=== PATIENT | male | born 1950 | race Caucasian/White ===

== ENCOUNTER 2019-03-03 18:49 | Inpatient (IN) | payer OTHER ==
[~2019-03-03] VITALS: Ht 188 cm; Wt 95.4 kg
[2019-03-03] MEDS ORDERED: ASPirin 81 mg TAB PO ONE (19:30)
[2019-03-03 19:52] LABS: Hematocrit 47.1 % (41.0-53.0); Mean Corpuscular Hemoglobin 32.4 pg (28.0-32.0); Mean Corpuscular Volume 95.3 fL (80.0-100.0); Platelet Count (auto) 191 10^3/uL (140-450); Red Blood Cells 4.94 10^6/uL (4.5-5.90); White Blood Cell 12.3 10^3/uL (4.4-10.8)
[2019-03-03 19:57] LABS: Basophils % (manual) 0 (0.0-2.0); Blast Cells 0; Eosinophils % (manual) 0 (0-7); Metamyelocytes % 0; Myelocytes % 0; Promyelocytes % 0; Reactive Lymphocytes 0
[2019-03-03 20:01] LABS: Calcium 8.3 mg/dL (8.5-10.1); Chloride 107 mmol/L (98-107); Potassium 4.6 mmol/L (3.5-5.1); Sodium 138 mmol/L (136-145)
[2019-03-03 20:10] LABS: Alanine Aminotransferase 24 U/L (16-61); Albumin 3.8 g/dL (3.4-5.0); Alkaline Phosphatase 73 U/L (45-117); Anion Gap 6 (5-15); Aspartate Aminotransferase 19 U/L (15-37); Bilirubin, Total 0.7 mg/dL (0.2-1.0); Blood Urea Nitrogen 19 mg/dL (7-18); Carbon Dioxide 25 mmol/L (21-32); GFR African American 67 mL/min; GFR Non-African American 55 mL/min; Glucose 211 mg/dL (74-106); Total Protein 7.3 g/dL (6.4-8.2)
[2019-03-03 20:54] LABS: Band Neutrophils % (manual) 5; Lymphocytes % (manual) 3 (10.0-50.0); Monocytes % (manual) 2 (0-12)
[2019-03-03] MEDS ORDERED: METF-370 PO (22:30)
[2019-03-03] MEDS ORDERED: OMEP20TA PO (22:30)
[2019-03-03] MEDS ORDERED: LISI2.5T47 PO (22:30)
[2019-03-03] MEDS ORDERED: SIMV-13 PO (22:30)
[2019-03-03] MEDS ORDERED: FLUT500M2 IN (22:30)
[2019-03-03] MEDS ORDERED: LEVO137T3 PO (22:30)
[2019-03-03] MEDS ORDERED: diphenhdrAMINE HCL 25 MG CAP PO ONE (23:00)
[2019-03-03] MEDS ORDERED: MORPHINE SULFATE 4 MG/ML SYR/VIAL IV PRN (23:15)
[2019-03-03] MEDS ORDERED: HYDROcodone-ACET 5/325MG TAB PO PRN (23:15)
[2019-03-03] MEDS ORDERED: DOCUSATE SOD 100 MG CAP PO PRN (23:15)
[2019-03-03] MEDS ORDERED: LORazepam 0.5 MG TAB PO PRN (23:15)
[2019-03-03] MEDS ORDERED: ACETAMINOPHEN 325 MG TAB PO PRN (23:15)
[2019-03-03] MEDS ORDERED: DEXTROSE (50%) 50ML SYRG IV PRN (23:15)
[2019-03-03] MEDS ORDERED: MORPHINE SULF INJ 2 MG/ML SYRINGE 1ML IV PRN (23:15)
[2019-03-03] MEDS ORDERED: NITROGLYCERIN 0.4 MG SL TAB SL PRN (23:15)
[2019-03-03] MEDS ORDERED: ONDANSETRON HCL 4 MG/2 ML VIAL IV PRN (23:15)
[2019-03-03] MEDS: ACCU-CHEK COMFORT CURVE STRIP VI SCH (23:49)
[2019-03-03] MEDS: InsuLIN REG 1unit/0.01ml Soln (100units/ml) SC SCH (23:54)
[2019-03-04] MEDS: ACCU-CHEK COMFORT CURVE STRIP VI SCH ×5 (04:07→22:37)
[2019-03-04] MEDS: InsuLIN REG 1unit/0.01ml Soln (100units/ml) SC SCH ×5 (04:07→20:00)
[2019-03-04 06:21] LABS: Basophils # (auto) 0 uL; Basophils % (auto) 0.2 % (0.0-2.0); Eosinophils # (auto) 0 uL; Eosinophils % (auto) 0.2 % (0.0-7.0); Hematocrit 42.1 % (41.0-53.0); Hemoglobin 14.6 g/dL (13.5-17.5); Lymphocytes # (auto) 0.7 uL; Lymphocytes % (auto) 9.4 % (10.0-50.0); Mean Corpuscular Hemoglobin 32.7 pg (28.0-32.0); Mean Corpuscular Hgb Conc. 34.6 g/dL (32.0-36.0); Mean Corpuscular Volume 94.5 fL (80.0-100.0); Monocytes # (auto) 0.4 uL; Monocytes % (auto) 5.8 % (0.0-12.0); Neutrophils # (auto) 6.3 uL; Neutrophils % (auto) 84.4 % (37.0-80.0); Nucleated Red Blood Cells % 0.1 %; Platelet Count (auto) 156 10^3/uL (140-450); Red Blood Cells 4.46 10^6/uL (4.5-5.90); Red Cell Distribution Width 13.1 % (11.8-14.3); White Blood Cell 7.5 10^3/uL (4.4-10.8)
[2019-03-04 06:29] LABS: Anion Gap 8 (5-15); Blood Urea Nitrogen 19 mg/dL (7-18); Carbon Dioxide 21 mmol/L (21-32); Chloride 107 mmol/L (98-107); GFR African American 78 mL/min; GFR Non-African American 64 mL/min; Glucose 137 mg/dL (74-106); Potassium 3.8 mmol/L (3.5-5.1); Sodium 136 mmol/L (136-145)
--- NOTE | 2019-03-04 08:00 | NUR ---
Opening Shift Note Received report of the patient. Awake lying in bed. Patient shows no signs of distress at this time. Discussed plan of care with the patient. Bed in lowest position, side rails up x2, and the call light is within reach. Will continue to monitor.
[2019-03-04 09:00] VITALS: BP 141/78
[2019-03-04] MEDS ORDERED: INFLUENZA QUAD 2019-2020 0.5ml SYRG IM ONE (10:00)
--- NOTE | 2019-03-04 12:12 | NUR ---
03/04/19 1150 Contacted network intelligence analyst Delia at [facility] and requested that authorization be provided for patient's continued stay. Per Delia the assigned director case Blue has to review today's clinical information before further authorization can be given. I faxed today's labs, vitals and medication list to [facility] verified receipt. I requested that she have [employer] Blue call me regarding authorization request.
[2019-03-04 13:00] VITALS: BP_SYST 104; BP_SYST 120; BP_DIAS 62; BP_DIAS 65
--- NOTE | 2019-03-04 13:18 | NUR ---
Flu Shot Patient wants flu shot upon discharge.
[2019-03-04 15:02] LABS: INR 1.19 (0.9-1.15); Partial Thromboplastin Time 28.2 sec (23.64-32.05)
--- NOTE | 2019-03-04 16:33 | NUR ---
03/04/19 1630 I called [facility] Captain Assistant Blue [phone] to ask for an update on the status of the transfer-was on hold for more than 10 minutes, unable to leave a message.
[2019-03-04 17:00] VITALS: BP 122/69
--- NOTE | 2019-03-04 19:20 | NUR ---
Opening Shift Note Assumed care of patient. Patient is awake and alert. No S/S of distress/SOB or pain. Instructed on POC and to call for assist PRN, will continue to monitor for changes. Bed locked in lowest position and bed rails up x2. Call light within reach.
--- NOTE | 2019-03-04 19:55 | NUR ---
Leatha Mcarthur requested his [place] physician to speak to our physician. Paged the hospitalist. Awaiting response.
--- NOTE | 2019-03-04 20:48 | NUR ---
Transfer crew caller hospitalist called back and stated that he felt more comfortable with Dr. Ruby speaking to the [place] physician because he has not seen the patient.
[2019-03-04 22:00] VITALS: BP 119/71
[2019-03-04] MEDS ORDERED: ATORVASTATIN 20 MG TAB PO SCH (22:00)
[2019-03-04] MEDS: METOPROLOL TARTRATE 25 MG TAB PO SCH (22:36)
[2019-03-05] MEDS: ACCU-CHEK COMFORT CURVE STRIP VI SCH ×4 (00:41→12:13)
[2019-03-05] MEDS: InsuLIN REG 1unit/0.01ml Soln (100units/ml) SC SCH ×4 (04:00→12:13)
[2019-03-05 05:00] VITALS: BP 121/64
[2019-03-05] MEDS ORDERED: LEVOTHYROXINE SODIUM 25 MCG TAB PO SCH (07:00)
[2019-03-05 07:15] LABS: Cholesterol 92 mg/dL (< 200)
[2019-03-05 07:17] LABS: HDL Cholesterol 31 mg/dL (40-59); LDL Cholesterol 47 mg/dL (< 100); Triglycerides 84 mg/dL (< 150)
[2019-03-05 09:12] VITALS: BP 128/74
[2019-03-05] MEDS: METOPROLOL TARTRATE 25 MG TAB PO SCH (09:31)
--- NOTE | 2019-03-05 09:34 | NUR ---
PT REFUSED FLU VACCINE AT THIS TIME, PT STATED HE WILL WAIT UNTIL EVERYTHING IS CLEARED, PER PT HE WILL GET IT IN [place] SINCE HE IS GOING TO TRANSFER.
[2019-03-05] MEDS ORDERED: ASPirin-EC 81 mg tab PO SCH (10:00)
[2019-03-05] MEDS ORDERED: LISINOPRIL 5 MG TAB PO SCH (10:00)
--- NOTE | 2019-03-05 11:15 | NUR ---
pt seen by Dr. Ruby pt made morejon of the echocardiogram result, Dr. Ruby ordered to give pt echocardiogram copy, pt will follow up with [facility] as out patient.
[2019-03-05] MEDS ORDERED: ASP81EC PO (11:22)
[2019-03-05] MEDS ORDERED: MET25T PO (11:22)
[2019-03-05 12:00] VITALS: BP 128/74
--- NOTE | 2019-03-05 13:10 | NUR ---
Discharge instructions given as ordered. Encourage to follow up with [place] doctor in 1 week as instructed. Instructed to order picker/assembler new prescription at [facility]. All questions and concerns addressed. Patient verbalized understanding. Medication reconciliation form completed and copy given to patient. IV removed with catheter intact, pressure dressing applied. Telemetry unit returned to ICU. Patient taken to vehicle via wheelchair with all personal belongings, accompanied by staff and family member. No distress noted at time of departure.
== END 2019-03-05 13:10 | disposition home or self-care (01) | DRG 684 ==
LOC: ER 18:51 → TELE 18:52 → TELE-EAST 03-04 08:00
PROVIDERS: ADMIT Hospitalist; ATTEND Internal Medicine
DX: N17.9 Acute kidney failure, unspecified (principal); I25.10 Atherosclerotic heart disease of native coronary artery without angina pectoris; I10 Essential (primary) hypertension; Z87.891 Personal history of nicotine dependence; Z90.49 Acquired absence of other specified parts of digestive tract; Z88.7 Allergy status to serum and vaccine; Z28.21 Immunization not carried out because of patient refusal; E11.9 Type 2 diabetes mellitus without complications
CPT/HCPCS: 36415; 71045; 80048; 80053; 80061; 82962; 83036; 83880; 84443; 84484; 85007; 85025; 85027; 85610; 85730; 93005; 93306; G0378; J1815